=== PATIENT | male | born 1995 | race Caucasian/White ===

== ENCOUNTER 2022-08-17 09:46 | Emergency (ER) | payer BC, SELFPAY ==
[2022-08-17 10:04] VITALS: BP 172/118; PULSE 101; RESP 16; TEMP 36.6; O2SAT 98; BMI 31.3
--- NOTE | 2022-08-17 13:07 | ED_ITS ---
HPI - General Adult General Chief complaint: Abdominal Pain Stated complaint: Pain around chest and stomach area Time Seen by Provider: 08/17/22 12:13 Source: patient Mode of arrival: ambulatory Limitations: no limitations History of Present Illness HPI narrative: 27-year-old male coming in today complaining of epigastric discomfort that started last night, middle of the night. He states that started by coming and going but now is constant. Nothing seems to make it better or worse. He denies shortness of breath, nausea, vomiting. Denies any diarrhea or urinary symptoms such as increased frequency, urgency or dysuria. No fevers or chills. Patient denies tobacco use, coffee consumption or other drug use. He does drink a can of soda per day. He states that he has eaten today and he feels like his dis comfort is getting worse. He does state that he is under a lot of stress recently but does not go into details. He is not short of breath and he denies any coughing. He denies any recent traveling or long periods of immobilization. No recent surgeries. He states that he has been told he has high blood pressure in the past. Related Data Home Medications Medication Instructions Recorded Confirmed No Known Home Medications 08/17/22 08/17/22 Allergies Allergy/AdvReac Type Severity Reaction Status Date / Time Penicillins Allergy Mild Verified 08/17/22 10:08 Review of Systems Status of ROS: Reports: 10 or more systems reviewed and unremarkable except as noted in History and below [facility] Social History Do you use any of these nicotine containing products: None Exam Narrative: Exam Narrative: Overweight, well-developed patient in no acute distress. Alert and oriented. Answers questions appropriately. Mood and affect are appropriate. Thoughts are goal oriented and rational. No tangential or magical thinking noted. Patient speaks in full sentences without needing to catch his breath. Voice sounds normal. HEENT: Normocephalic atraumatic. Pupils are equally round reactive to light. Extraocular muscles are intact. Conjunctivae are moist without any icterus noted. Moist mucous membranes. Posterior pharynx is normal. Neck is soft without any lymphadenopathy or thyromegaly. No masses are appreciated. Cardiovascular: Heart is regular rate and rhythm S1 and S2 are present without any murmurs. Lungs: Clear to auscultation bilaterally no wheezes rhonchi or rales are appreciated. Patient takes deep breaths without any discomfort. Abdomen: Protuberant and soft. nondistended with normal bowel sounds. No guarding or rebound. Negative Martinez sign. He has mild epigastric tenderness with deep palpation, otherwise no other tenderness. Extremities: Bilateral lower extremities are without edema. Normal DP and PT pulses. Skin: Well perfused without any obvious rashes. Const: Vital Signs, click to edit/add: Vital Signs - 24 hr 08/17/22 10:04 Temperature 97.9 F Pulse Rate [Right Pulse Oximeter] 101 H Respiratory Rate 16 Blood Pressure [Ri ght Upper Arm] 172/118 H Pulse Oximetry 98 Oxygen Delivery Me thod Room Air Course Course Hospital Course: Labs were drawn and patient was given oral Carafate. Lab work was unremarkable. Ultrasound unremarkable. Vital Signs Vital signs: Initial Vital Signs Temperature 97.9 F 08/17/22 10:04 Temperature Source Temporal Artery Scan 08/17/22 10:04 Pulse Rate 101 H 08/17/22 10:04 Pulse Rhythm 08/17/22 10:04 Respiratory Rate 16 08/17/22 10:04 Blood Pressure 172/118 H 08/17/22 10:04 Blood Pressure Mean 136 08/17/22 10:04 Blood Pressure Position Sitting 08/17/22 10:04 Pulse Oximetry 98 08/17/22 10:04 Oxygen Delivery Method 08/17/22 10:04 Vital Signs Temperature 97.9 F 08/17/22 10:04 Pulse Rate 101 H 08/17/22 10:04 Respiratory Rate 16 08/17/22 10:04 Blood Pressure 172/118 H 08/17/22 10:04 Pulse Oximetry 98 08/17/22 10:04 Oxygen Delivery Method 08/17/22 10:04 Temperature 97.9 F 08/17/22 10:04 Pulse Rate 101 H 08/17/22 10:04 Respiratory Rate 16 08/17/22 10:04 Blood Pressure 172/118 H 08/17/22 10:04 Pulse Oximetry 98 08/17/22 10:04 Oxygen Delivery Method 08/17/22 10:04 Medical Decision Making Lab Data Labs: Lab Results 08/17/22 08/17/22 Range/Units 13:22 13:22 WBC 11.11 H (4.50-11.00) K/uL RBC 5.77 (4.30-5.90) m/uL Hgb 16.7 (13.5-17.5) gm/dL Hct 48.6 (37.0-53.0) % MCV 84 (80-100) fL MCH 29 (26-34) pg MCHC 34 (32-36) gm/dL RDW Coeff of Temo 12.4 (11.5-15.5) % Plt Count 154 (140-440) K/uL Neut % (Auto) 78.5 H (42.0-72.0) % Lymph % (Auto) 10.4 L (20-44) % White % (Auto) 10.3 (0.0-11.0) % Eos % (Auto) 0.0 (0.0-7.0) % Baso % (Auto) 0.1 (0.0-3.0) % Neut # (Auto) 8.70 H (1.7-7.0) K/uL Lymph # (Auto) 1.20 (0.90-2.90) K/uL White # (Auto) 1.10 H (0.00-0.90) K/UL Eos # (Auto) 0.00 (0.00-0.50) K/uL Baso # (Auto) 0.00 (0.00-0.30) K/uL Sodium 139 (135-149) mmol/L Potassium 4.0 (3.6-5.1) mmol/L Chloride 103 (96-114) mmol/L Carbon Dioxide 25 (20-32) mmol/L BUN 16 (5-24) mg/dL Creatinine 0.9 (0.5-1.5) mg/dL Estimated Creat Clear 115.27 Estimated GFR 120 ml/min Glucose 102 (60-115) mg/dL Calcium 9.0 (8.4-10.6) mg/dL Total Bilirubin 0.9 (0.1-1.5) mg/dL Direct Bilirubin 0.2 (0.0-0.5) mg/dL AST 29 (12-35) U/L ALT 41 (4-50) U/L Alkaline Phosphatase 53 (40-150) U/L Troponin I < 0.01 L (0.01-0.04) ng/mL Total Protein 7.6 (6.0-8.3) g/dL Albumin 4.7 (3.3-5.0) g/dL Lipase 37 (23-300) U/L Imaging Data Abdominal ultrasound: Attestation: I have reviewed the pertinent imaging results. Radiologist's impression: Ultrasound abdomen limited. Sonographic images of the right upper quadrant were obtained using muller-scale and color Doppler images. COMPARISON: None. FINDINGS: Liver: Normal in size and echotexture. No suspicious masses. No intrahepatic biliary dilatation. Gallbladder: No stones or sludge. Normal wall thickness. No pericholecystic fluid. Negative sonographic Martinez sign. Common bile duct: 5 mm. Pancreas: Obscured. Right kidney: Normal in size. Normal echotexture and cortex. No suspicious masses, stones, or hydronephrosis. Vasculature: Proximal abdominal aorta and IVC are unremarkable. IMPRESSION: No cholelithiasis, cholecystitis, or biliary obstruction. Discharge Plan Discharge Clinical Impression: Gastritis Patient Disposition: Home, Self-Care Condition: Stable Additional Instructions: Recommend that you start taking Famotidine as needed for abdominal discomfort (this medication will help lower the amount of acid in your stomach which will help you feel better). Follow-up with your primary care provider as needed or if symptoms are getting worse. Prescriptions: No Action No Known Home Medications Stand Alone Forms: [employer] Info Instructions
[2022-08-17] MEDS: SUCRALFATE 1 GM TABLET PO (13:22)
[2022-08-17 13:35] LABS: Basophils Percent Auto 0.1 % (0.0-3.0); Hematocrit 48.6 % (37.0-53.0); Hemoglobin* 16.7 gm/dL (13.5-17.5); Immature Granulocytes Pct Auto 0.7 %; Lymphocytes Percent Auto 10.4 % (20-44); Mean Corpuscular HGB Conc 34 gm/dL (32-36); Mean Corpuscular Hemoglobin 29 pg (26-34); Mean Corpuscular Volume 84 fL (80-100); Monocytes Percent Auto 10.3 % (0.0-11.0); Neutrophils Percent Auto 78.5 % (42.0-72.0); Platelet Count* 154 K/uL (140-440); RDW Coefficient of Variation % 12.4 % (11.5-15.5); Red Blood Count 5.77 m/uL (4.30-5.90); White Blood Count* 11.11 K/uL (4.50-11.00)
[2022-08-17 13:36] LABS: Slide Review Reflex No
--- NOTE | 2022-08-17 13:46 | CRLHL7_ITS ---
For Patients: As a result of the Century Cures Act, medical imaging exams and procedure reports are released immediately into your electronic medical record. You may view this report before your referring provider. If you have questions, please contact your health care provider. INDICATION: Abdominal pain. TECHNIQUE: Ultrasound abdomen limited. Sonographic images of the right upper quadrant were obtained using muller-scale and color Doppler images. COMPARISON: None. FINDINGS: Liver: Normal in size and echotexture. No suspicious masses. No intrahepatic biliary dilatation. Gallbladder: No stones or sludge. Normal wall thickness. No pericholecystic fluid. Negative sonographic Martinez sign. Common bile duct: 5 mm. Pancreas: Obscured. Right kidney: Normal in size. Normal echotexture and cortex. No suspicious masses, stones, or hydronephrosis. Vasculature: Proximal abdominal aorta and IVC are unremarkable. IMPRESSION: No cholelithiasis, cholecystitis, or biliary obstruction. Dictated by Ricardo Austin MD @ 08/17/2022 3:56:58 PM (Electronically Signed)
[2022-08-17 13:48] LABS: Albumin* 4.7 g/dL (3.3-5.0)
[2022-08-17 13:49] LABS: Chloride* 103 mmol/L (96-114); Sodium* 139 mmol/L (135-149)
[2022-08-17 13:51] LABS: Bilirubin Direct* 0.2 mg/dL (0.0-0.5); Bilirubin Total* 0.9 mg/dL (0.1-1.5); Carbon Dioxide* 25 mmol/L (20-32); Creatinine* 0.9 mg/dL (0.5-1.5); Est. Creatinine Clearance* 115.27; Estimated Glomerular Filt Rate 120 ml/min; Total Protein* 7.6 g/dL (6.0-8.3)
[2022-08-17 13:52] LABS: Alanine Aminotransferase* 41 U/L (4-50); Alkaline Phosphatase* 53 U/L (40-150); Aspartate Amino Transferase* 29 U/L (12-35); Blood Urea Nitrogen* 16 mg/dL (5-24); Glucose* 102 mg/dL (60-115); Lipase* 37 U/L (23-300)
[2022-08-17 14:07] LABS: Troponin I* < 0.01 ng/mL (0.01-0.04)
--- NOTE | 2022-08-17 14:11 | ED.NURSE ---
Pt back from [facility]
== END 2022-08-17 16:38 | disposition home or self-care (01) ==
PROVIDERS: Emergency Provider Family Medicine
DX: K29.70 Gastritis, unspecified, without bleeding (principal)
CPT/HCPCS: 36415; 76705; 80048; 80076; 83690; 84484; 85025; 93005; 99284; 99285; A9270